=== PATIENT | female | born 1980 | race Caucasian/White ===

== ENCOUNTER 2017-04-17 16:47 | Emergency (ER) | payer OTHER ==
[2017-04-17] MEDS ORDERED: IBUPROFEN 600 MG TABLET (FP) PO ONE (17:06)
--- NOTE | 2017-04-17 17:06 | PDOC ---
Rapid Medical Evaluation Time Seen by Provider: 04/17/17 17:05 Medical Evaluation: Allergies Allergy/AdvReac Type Severity Reaction Status Date / Time No Known Allergies Allergy Verified 05/30/14 02:30 04/17/17 17:05 Pt c/o: myalgia and weakness, cough, headache since 3 days, tylenol taken this am Pt on brief exam: vss Pt ordered for: motrin 600mg given secondary to complaints P to proceed to the ED: 04/17/17 17:07 Discharge Disposition - Diagnosis Myalgia - Referrals - Patient Instructions - Post Discharge Activity
[2017-04-17 17:07] VITALS: BP 100/59; PULSE 79; TEMP 98.6; BMI 29.2
--- NOTE | 2017-04-17 19:03 | PDOC ---
History of Present Illness - General Chief Complaint: Respiratory Stated Complaint: COLD SYMPTOMS Time Seen by Provider: 04/17/17 17:05 History Source: Patient Exam Limitations: No Limitations - History of Present Illness Initial Comments: 04/17/17 18:59 She is here with complaints of cough, fevers, chills Severity: reports: moderate Associated Symptoms: reports: chest pain/soreness, cough, dizziness, earache, fever/chills, nasal drainage, sore throat Past History - Travel Traveled outside of the country in the last 30 days: No Close contact w/someone who was outside of country & ill: No - Past Medical History Allergies/Adverse Reactions: Allergies Allergy/AdvReac Type Severity Reaction Status Date / Time No Known Allergies Allergy Verified 04/17/17 17:07 Home Medications: Ambulatory Orders Acetaminophen W/ Codeine #3 [Tylenol # 3] 1 combo PO Q4H PRN #10 tablet MDD 6 COPD: No Other medical history: DENIES MEDICAL HX - Surgical History Appendectomy: Yes Cholecystectomy: Yes GI Surgery: Yes (hernia repair) - Reproductive History (#): 4 Para: 4 - Suicide/Smoking/Psychosocial Hx Smoking History: Never smoked Have you smoked in the past 12 months: Yes Information on smoking cessation initiated: No Hx Alcohol Use: Yes (socially) Review of Systems - Review of Systems Able to Perform ROS?: Yes Is the patient limited Estonian proficient: Yes Constitutional: Yes: Symptoms Reported, See HPI, Loss of Appetite, Malaise HEENTM: Yes: Symptoms Reported, See HPI, Nose Congestion, Throat Pain Respiratory: Yes: Symptoms reported, See HPI, Cough. No: Wheezing ABD/GI: Yes: Diarrhea, Nausea. No: Vomiting All Other Systems: Reviewed and Negative *Physical Exam - Vital Signs Last Vital Signs Temp Pulse Resp BP Pulse Ox 98.6 F 79 16 100/59 98 04/17/17 17:04 04/17/17 17:04 04/17/17 17:04 04/17/17 17:04 04/17/17 17:04 - Physical Exam General Appearance: Yes: Nourished, Appropriately Dressed HEENT: positive: HARVEY, Normal ENT Inspection, TMs Normal (ingested but landmarks easily visualized), Tonsillar Erythema, Nasal Congestion, Rhinorrhea. negative: Pharynx Normal, Tonsillar Exudate Neck: positive: Supple, Lymphadenopathy (R), Lymphadenopathy (L). negative: Tender Respiratory/Chest: positive: Lungs Clear, Normal Breath Sounds, Wheezing Gastrointestinal/Abdominal: positive: Normal Bowel Sounds, Soft. 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, Fully Oriented, Alert, Normal Mood/ Affect, Normal Response, Motor Strength 07/12 ED Treatment Course - Medications Given in the ED: ED Medications Discontinued Medications Generic Name Dose Route Start Last Admin Trade Name Anuja PRN Reason Stop Dose Admin Ibuprofen 600 mg 04/17/17 17:06 04/17/17 17:08 Motrin - PO 04/17/17 17:07 600 mg ONCE ONE Administration Progress Note - Progress Note Progress Note: Upper respiratory exit, probable influenza however outside 48 hour window for Tamiflu treatment therefore will continue conservative measures and provided # 10 Tylenol 3 tablets for cough suppressant *DC/Admit/Observation/Transfer Diagnosis at time of Disposition: Myalgia, Influenzal acute upper respiratory infection - Discharge Dispostion Disposition: HOME Condition at time of disposition: Stable Admit: No - Referrals - Patient Instructions Printed Discharge Instructions: DI for Viral Upper Respiratory Infection -- Adult Additional Instructions: Rest, drink lots of fluids: Teas, water, soups, Pedialyte Saltwater gargles Steamy showers/seem to face break up mucus Old-fashioned treatments help! Avoid contact with others until fevers and cough resolved as this is very contagious Lots of handwashing and good hygiene Continue [id number] medications for symptomatic relief Tylenol or Motrin for fever and pain May take Tylenol #3 for severe cough Followup with private physician in one to 2 days as needed or if worsening Return to emergency department for worsened symptoms, fevers, dehydration Influenza takes between 5 and 7 days for resolution To not participate in any activity, work, or school until fevers and cough are gone for at least one day - Post Discharge Activity Forms/Work/School Notes: Back to Work
== END 2017-04-17 19:17 | disposition home or self-care (01) ==
LOC: JERFT 16:47
DX: J11.1 Influenza due to unidentified influenza virus with other respiratory manifestations (principal); M79.1 Myalgia
CPT/HCPCS: 99281-25

== ENCOUNTER 2017-07-11 13:40 | Emergency (ER) | payer OTHER ==
[2017-07-11 13:56] VITALS: BP 109/50; PULSE 80; TEMP 98.4; BMI 27.4
[2017-07-11] MEDS ORDERED: IBUPROFEN 600 MG TABLET (FP) PO ONE ×2 (14:26→14:29)
--- NOTE | 2017-07-11 14:42 | PDOC ---
History of Present Illness - General Chief Complaint: Injury Stated Complaint: RT ELBOW PAIN Time Seen by Provider: 07/11/17 14:00 - History of Present Illness Initial Comments: 07/11/17 14:38 CHIEF COMPLAINT: elbow pain HISTORY OF PRESENT ILLNESS: 36 yo F presents to [facility] with c/o of "my cyst in my elbow ruptured." Patient reports that she has had a cyst to her elbow for "over a year and a half" and it "ruptured" last night. She reports pain to the elbow with movement. She reports recent fever, chills, and nausea, but no vomiting. PAST MEDICAL HISTORY: Denies past medical history FAMILY HISTORY: Denies SOCIAL HISTORY: Denies tobacco, alcohol, illicit drug use. SURGICAL HISTORY: Denies ALLERGIES: No known drug allergies REVIEW OF SYSTEMS General/Constitutional: Denies fever or chills. Denies weakness, weight change. HEENT: Denies change in vision. Denies ear pain or discharge. Denies sore throat. Cardiovascular: Denies chest pain or shortness of breath. Respiratory: Denies cough, wheezing, or hemoptysis. Gastrointestinal: Denies nausea, vomiting, diarrhea or constipation. Denies rectal bleeding. Genitourinary: Denies dysuria, frequency, or change in urination. Musculoskeletal: Pain to left elbow. Denies neck or back pain. Skin: Denies rash or easy bruising. PHYSICAL EXAM General Appearance: Well-appearing, appropriately dressed. No apparent distress. HEENT: EOMI, PERRLA. No conjunctival pallor. No photophobia, scleral icterus. Respiratory/Chest: Lungs CTAB. Cardiovascular: RRR. S1, S2. Musculoskeletal/Extremities: Nodule inferior to anterior elbow with surrounding erythema. Normal inspection. FROM of all extremities, normal capillary refill. Pelvis Stable. No CVA tenderness. No tenderness to extremities, pedal edema, swelling, erythema or deformity. Integumentary: Appropriate color, dry, warm. 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 Fully oriented, alert. Appropriate mood/affect. Motor strength 5/5. No appreciable EOM palsy, facial droop or sensory deficit. Past History - Past Medical History Allergies/Adverse Reactions: Allergies Allergy/AdvReac Type Severity Reaction Status Date / Time No Known Allergies Allergy Verified 07/11/17 13:48 Home Medications: Ambulatory Orders Clindamycin [Cleocin -] 300 mg PO QID #40 capsule 07/11/17 COPD: No - Surgical History Appendectomy: Yes Cholecystectomy: Yes GI Surgery: Yes (hernia repair) - Reproductive History (#): 4 Para: 4 - Immunization History Immunization Up to Date: Yes - Suicide/Smoking/Psychosocial Hx Smoking History: Current some day smoker Have you smoked in the past 12 months: Yes Information on smoking cessation initiated: No Hx Alcohol Use: Yes Drug/Substance Use Hx: Yes Substance Use Type: Marijuana *Physical Exam - Vital Signs Last Vital Signs Temp Pulse Resp BP Pulse Ox 98.4 F 80 18 109/50 100 07/11/17 13:48 07/11/17 13:48 07/11/17 13:48 07/11/17 13:48 07/11/17 13:48 ED Treatment Course - RADIOLOGY Radiology Studies Ordered: Category Date Time Status ELBOW-RIGHT [RAD] Stat Radiology 07/11/17 14:16 Ordered - Medications Given in the ED: ED Medications Discontinued Medications Generic Name Dose Route Start Last Admin Trade Name Anuja PRN Reason Stop Dose Admin Ibuprofen 600 mg 07/11/17 14:26 07/11/17 14:30 Motrin - PO 07/11/17 14:27 600 mg ONCE ONE Administration Medical Decision Making - Medical Decision Making 07/11/17 14:42 36 yo F presents to fast track with c/o of "my cyst in my elbow ruptured." Clinical presentation consistent with cellulitis. -X-ray r/o gas, effusion 07/11/17 14:51 no gas/effusion on x-ray. area of erythema/warmth circumscribed. will rx clindamycin for suspected cellulitis. Advised patient to take medication as prescribed. Advised patient of signs and symptoms for return to ED. Patient verbalized understanding and agrees to plan. *DC/Admit/Observation/Transfer Diagnosis at time of Disposition: Cellulitis of left arm - Discharge Dispostion Disposition: HOME Condition at time of disposition: Stable Admit: No - Prescriptions Prescriptions: Clindamycin [Cleocin -] 300 mg PO QID #40 capsule - Referrals Referrals: Shikha Stratton [Primary Care Provider] - - Patient Instructions Additional Instructions: Please take medications as prescribed; complete the ENTIRE course of antibiotics even if symptoms improve. Return in 48 hours if symptoms do not improve. As discussed, if you notice the area of redness/swelling spreads beyond the area circled, or you develop persistent fever, chills, vomiting, or diarrhea, please return to the ER immediately. - Post Discharge Activity Forms/Work/School Notes: Back to Work
== END 2017-07-11 15:05 | disposition home or self-care (01) ==
LOC: JER 13:40
DX: L03.113 Cellulitis of right upper limb (principal); F17.210 Nicotine dependence, cigarettes, uncomplicated
CPT/HCPCS: 73070-TC-RT-FY; 99281-25

== ENCOUNTER 2018-05-15 16:08 | Emergency (ER) | payer OTHER ==
[2018-05-15 16:31] VITALS: BP 110/55; PULSE 56; TEMP 98.1; BMI 32.5
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
== END 2018-05-15 23:24 | disposition home or self-care (01) ==
LOC: JER 16:08
DX: S20.212A Contusion of left front wall of thorax, initial encounter (principal); S39.012A Strain of muscle, fascia and tendon of lower back, initial encounter; V73.6XXA Passenger on bus injured in collision with car, pick-up truck or van in traffic accident, initial encounter; Y92.414 Local residential or business street as the place of occurrence of the external cause; Y93.89 Activity, other specified; Y99.8 Other external cause status
CPT/HCPCS: 71046-TC-FY; 99281-25

== ENCOUNTER 2020-06-12 06:31 | Day surgery (SDC) | payer OTHER ==
[2020-06-06 15:46] VITALS: BMI 37.6
[2020-06-12] MEDS ORDERED: MIDAZOLAM HCL 2 MG/2 ML SINGLE DOSE VIAL ONE ×2 (07:17→13:04)
[2020-06-12] MEDS ORDERED: PROPOFOL 20 ML ONE ×6 (07:17→14:44)
[2020-06-12] MEDS ORDERED: BUPIVACAINE HCL/EPINEPHRINE/PF 30 ML VIAL IJ ONE (07:17)
[2020-06-12] MEDS ORDERED: BUPIVACAINE HCL 50 ML ONE (07:19)
[2020-06-12] MEDS ORDERED: BUPIVACAINE HCL/PF 2.5 MG/ML - 30 ML VIAL IJ ONE (07:19)
[2020-06-12] MEDS ORDERED: PROMETHAZINE HCL 25 MG/1 ML VIAL IVPB PRN (07:52)
[2020-06-12] MEDS ORDERED: oxyCODONE HCL 5 MG TABLET PO PRN ×4 (07:52→15:11)
[2020-06-12] MEDS ORDERED: ONDANSETRON 4 MG/2 ML VIAL IVPUSH PRN ×2 (07:52→15:11)
[2020-06-12] MEDS ORDERED: LACTATED RINGERS SOLUTION 1,000 ML IV SCH (08:00)
[2020-06-12] MEDS ORDERED: BUPIVACAINE HCL/PF 0.5% (5 MG/ML) 30 ML VIAL IJ ONE (12:43)
[2020-06-12] MEDS ORDERED: DEXAMETHASONE SOD PHOSPHATE 10 MG/1 ML VIAL ONE (12:43)
[2020-06-12] MEDS ORDERED: fentaNYL CITRATE 250 MCG/5 ML VIAL ONE (13:22)
[2020-06-12] MEDS ORDERED: LIDOCAINE HCL 2% JELLY (5 ML/TUBE) ONE (13:26)
[2020-06-12] MEDS ORDERED: ONDANSETRON 4 MG/2 ML VIAL ONE (13:35)
[2020-06-12] MEDS ORDERED: DEXAMETHASONE SOD PHOSPHATE 4 MG/1 ML VIAL ONE (13:35)
[2020-06-12] MEDS ORDERED: KETOROLAC TROMETHAMINE 30 MG/1 ML VIAL ONE (13:35)
[2020-06-12] MEDS ORDERED: ceFAZolin SODIUM 1 GM VIAL ONE (13:35)
[2020-06-12] MEDS ORDERED: BUPIVACAINE 0.25% /EPI 1:200,000 10 ML VIAL NR ONE (14:14)
[2020-06-12] MEDS ORDERED: PROMETHAZINE HCL 25 MG/1 ML VIAL IVPUSH PRN (15:11)
[2020-06-12 16:14] VITALS: TEMP 98.2
[2020-06-12 17:15] VITALS: BP 116/66; PULSE 72
== END 2020-06-12 17:40 | disposition home or self-care (01) ==
LOC: FASU 06:31
PROVIDERS: ATTEND Orthopaedic Surgery
PROC: 0SBD4ZZ Excision of Left Knee Joint, Percutaneous Endoscopic Approach (ICD-10-PCS; 2020-06-12)
PROC: 0SBD4ZZ Excision of Left Knee Joint, Percutaneous Endoscopic Approach (ICD-10-PCS; principal; 2020-06-12 13:59)
DX: M23.204 Derangement of unspecified medial meniscus due to old tear or injury, left knee (principal); M17.11 Unilateral primary osteoarthritis, right knee; M65.862 Other synovitis and tenosynovitis, left lower leg; S83.512A Sprain of anterior cruciate ligament of left knee, initial encounter; X58.XXXA Exposure to other specified factors, initial encounter; Y93.9 Activity, unspecified; Y92.9 Unspecified place or not applicable; Y99.9 Unspecified external cause status
CPT/HCPCS: 81025; 88304-TC; 94760; J1100

== ENCOUNTER 2020-11-08 02:22 | Inpatient (IN) | payer OTHER ==
[2020-11-08] MEDS ORDERED: FAMOTIDINE 20 MG/50 ML IVPB 20 MG/50 ML MG IVPB ONE (02:25)
[2020-11-08] MEDS ORDERED: EPINEPHrine 1:1,000 1 MG/1 ML - 30ML VIAL (INJECTION) SQ ONE ×3 (02:26→02:51)
[2020-11-08] MEDS ORDERED: SODIUM CHLORIDE 1,000 ML IV STA (02:27)
[2020-11-08 02:36] VITALS: BMI 34.7
[2020-11-08] MEDS ORDERED: EPINEPHrine/PF 1 MG/1 ML (1:1,000) AMPULE ONE (02:53)
[2020-11-08] MEDS ORDERED: SODIUM CHLORIDE 0.9% 500 ML INFUS.BAG IV ONE (03:56)
[2020-11-08 04:02] LABS: BASO % 0.3 % (0-2.0); HEMOGLOBIN 11.6 GM/dL (10.7-15.3); LYMPH % 24.6 % (8-40); MCH 26.5 pg (25.7-33.7); MCHC 32.3 g/dl (32.0-36.0); MEAN CELL VOLUME 82.2 fl (80-96); MONO % 6.2 % (3.8-10.2); NEUT % 67.9 % (42.8-82.8); PLATELET COUNT 297 10^3/uL (134-434); RBC 4.38 M/mm3 (3.60-5.2); RDW 16.3 % (11.6-15.6); WHITE BLOOD COUNT 13.4 K/mm3 (4.0-10.0)
[2020-11-08] MEDS ORDERED: SODIUM CHLORIDE 1,000 ML IV SCH (04:15)
[2020-11-08 04:24] LABS: ALBUMIN 2.7 g/dl (3.4-5.0); BLOOD UREA NITROGEN 10.6 mg/dL (7-18); CALCIUM 7.9 mg/dL (8.5-10.1)
[2020-11-08 04:27] LABS: CREATININE 0.7 mg/dL (0.55-1.3)
[2020-11-08 04:29] LABS: BILIRUBIN,TOTAL 0.4 mg/dL (0.2-1); TOT PROT 5.3 g/dl (6.4-8.2)
[2020-11-08 07:49] LABS: HEMATOCRIT 36.4 % (32.4-45.2); HEMOGLOBIN 11.6 GM/dL (10.7-15.3); MCH 26.5 pg (25.7-33.7); MCHC 31.8 g/dl (32.0-36.0); MEAN CELL VOLUME 83.2 fl (80-96); MEAN PLT VOLUME 9.4 fl (7.5-11.1); PLATELET COUNT 276 10^3/uL (134-434); RBC 4.37 M/mm3 (3.60-5.2); RDW 16.1 % (11.6-15.6); WHITE BLOOD COUNT 16.8 K/mm3 (4.0-10.0)
[2020-11-08 08:53] LABS: PLATELET ESTIMATE NORMAL
[2020-11-08] MEDS ORDERED: ENOXAPARIN NA (PORCINE) 40 MG/0.4 ML DISP.SYRIN SQ SCH (10:00)
[2020-11-08] MEDS: NYSTATIN POWDER 100,000 UNITS/GM - 15 GM TOPICAL POWDER TP SCH ×2 (12:01→19:41)
[2020-11-08] MEDS ORDERED: PT OWN MED DRAWER 7, Y5N ONE (12:01)
[2020-11-08] MEDS: MUPIROCIN 2% TOPICAL OINTMENT FOR DECOLONIZATION NS SCH ×2 (12:02→21:03)
[2020-11-08] MEDS ORDERED: NYSTATIN POWDER 100,000 UNITS/GM - 15 GM TOPICAL POWDER TP SCH (12:09)
[2020-11-08] MEDS: DEXAMETHASONE SOD PHOSPHATE 10 MG/1 ML VIAL IVPUSH SCH ×2 (12:31→17:24)
[2020-11-08] MEDS: diphenhydrAMINE HCL 25 MG CAPSULE (FP) PO SCH ×3 (12:31→23:21)
[2020-11-08] MEDS: FAMOTIDINE 10 MG TABLET PO SCH ×2 (12:31→21:02)
[2020-11-08] MEDS ORDERED: CHLORHEXIDINE GLUCONATE 4% CLEANSER FOR DECOLONIZATION TP SCH (22:00)
[2020-11-08] MEDS: FAMOTIDINE 20 MG TABLET PO SCH (22:22)
[2020-11-09] MEDS ORDERED: MELATONIN 5 MG TABLETS PO ONE (01:06)
[2020-11-09] MEDS: DEXAMETHASONE SOD PHOSPHATE 10 MG/1 ML VIAL IVPUSH SCH ×2 (01:14→09:34)
[2020-11-09] MEDS: diphenhydrAMINE HCL 25 MG CAPSULE (FP) PO SCH ×2 (06:58→13:39)
[2020-11-09 08:25] LABS: BASO % 0.1 % (0-2.0); HEMATOCRIT 34.2 % (32.4-45.2); HEMOGLOBIN 11.1 GM/dL (10.7-15.3); MCH 26.5 pg (25.7-33.7); MCHC 32.4 g/dl (32.0-36.0); MEAN PLT VOLUME 9.4 fl (7.5-11.1); MONO % 3.1 % (3.8-10.2); NEUT % 89.8 % (42.8-82.8); PLATELET COUNT 253 10^3/uL (134-434); RBC 4.17 M/mm3 (3.60-5.2); RDW 16.5 % (11.6-15.6)
[2020-11-09 08:43] LABS: BLOOD UREA NITROGEN 10.6 mg/dL (7-18)
[2020-11-09 08:47] LABS: CREATININE 0.7 mg/dL (0.55-1.3)
[2020-11-09 08:57] LABS: CALCIUM 9.4 mg/dL (8.5-10.1)
[2020-11-09] MEDS ORDERED: PT OWN MED DRAWER 7, Y5N ONE (09:32)
[2020-11-09] MEDS: FAMOTIDINE 20 MG TABLET PO SCH (09:34)
[2020-11-09] MEDS ORDERED: ENOXAPARIN NA (PORCINE) 40 MG/0.4 ML DISP.SYRIN SQ SCH (10:00)
[2020-11-09 13:16] VITALS: BP 123/59; TEMP 98.9
[2020-11-09 13:22] VITALS: PULSE 105
[2020-11-09 14:06] LABS: EPI CELLS 2 /uL (0-25.1); HYALINE CASTS 1 /uL (0-3.1); URINE APPEARANCE TURBID; URINE BACTERIA 9 /uL (0-1359); URINE BILIRUBIN NEGATIVE (NEGATIVE); URINE COLOR ORANGE; URINE GLUCOSE (UA) NEGATIVE (NEGATIVE); URINE KETONE TRACE (NEGATIVE); URINE LEUK ESTERASE 1+ (NEGATIVE); URINE NITRITE NEGATIVE (NEGATIVE); URINE PROTEIN TRACE (NEGATIVE); URINE RBC 4069 /uL (0-23.9); URINE UROBILINOGEN 0.2 mg/dL (0.2-1.0); URINE WBC 27 /uL (0-25.8)
[2020-11-09 14:18] LABS: URINE CRYSTALS NON SEEN /hpf
[2020-11-09] MEDS ORDERED: DEXAMETHASONE 4 MG TABLET (FP) PO SCH (22:00)
== END 2020-11-09 17:19 | disposition home or self-care (01) | DRG 811 ==
LOC: JER 02:22 → JICU 03:00 → J7W 15:46
PROVIDERS: ADMIT Internal Medicine; ATTEND Nurse Practitioner Family
DX: T88.6XXA Anaphylactic reaction due to adverse effect of correct drug or medicament properly administered, initial encounter (principal); T36.4X5A Adverse effect of tetracyclines, initial encounter; Y84.9 Medical procedure, unspecified as the cause of abnormal reaction of the patient, or of later complication, without mention of misadventure at the time of the procedure; Y82.9 Unspecified medical devices associated with adverse incidents; Y92.89 Other specified places as the place of occurrence of the external cause; D72.829 Elevated white blood cell count, unspecified
CPT/HCPCS: 36415; 71045-TC-FY; 80048; 80053; 81003; 83036; 84703; 85025; 87040; 87086; 93005; 93010; 94761; 99291; C9803; J1100; U0003; U0005

== ENCOUNTER 2023-02-26 09:13 | Emergency (ER) | payer OTHER ==
[2023-02-26 09:21] VITALS: BP 122/71; PULSE 83; RESP 18; TEMP 99.1; BMI 34.4
[2023-02-26] MEDS ORDERED: KETOROLAC TROMETHAMINE 30 MG/1 ML VIAL IM ONE (10:26)
[2023-02-26] MEDS ORDERED: KETOROLAC TROMETHAMINE 30 MG/1 ML VIAL ONE (11:17)
== END 2023-02-26 11:51 | disposition home or self-care (01) ==
LOC: JERFT 09:13
PROC: 3E0233Z Introduction of Anti-inflammatory into Muscle, Percutaneous Approach (ICD-10-PCS; principal; 2023-02-26)
DX: R05.9 Cough, unspecified (principal); R51.9 Headache, unspecified; R11.10 Vomiting, unspecified; J11.1 Influenza due to unidentified influenza virus with other respiratory manifestations; Z20.822 Contact with and (suspected) exposure to COVID-19
CPT/HCPCS: 0241U-QW; 36415; 87491; 87591; 87651; 99284-25

== ENCOUNTER 2024-06-12 12:38 | Emergency (ER) | payer OTHER ==
[2024-06-12 12:55] VITALS: BP 111/54; PULSE 77; RESP 20; TEMP 98.6; BMI 38.3
[2024-06-12] MEDS ORDERED: ACETAMINOPHEN 500 MG TABLET (FP) ONE (13:22)
[2024-06-12] MEDS ORDERED: KETOROLAC TROMETHAMINE 30 MG/1 ML VIAL ONE (13:22)
[2024-06-12] MEDS ORDERED: LIDOCAINE 4% PATCH TP ONE (13:22)
[2024-06-12] MEDS: KETOROLAC TROMETHAMINE 30 MG/1 ML VIAL IM ONE (13:32)
[2024-06-12] MEDS: LIDOCAINE 4% PATCH TP ONE (13:32)
[2024-06-12] MEDS: ACETAMINOPHEN 500 MG TABLET (FP) PO ONE (13:33)
== END 2024-06-12 14:35 | disposition home or self-care (01) ==
LOC: JERFT 12:38
PROC: 3E0233Z Introduction of Anti-inflammatory into Muscle, Percutaneous Approach (ICD-10-PCS; principal; 2024-06-12)
DX: M25.561 Pain in right knee (principal); G89.29 Other chronic pain
CPT/HCPCS: 73562-TC-RT-FY; 99284-25